=== PATIENT | male | born 1965 | race Caucasian/White ===

== ENCOUNTER 2020-01-19 21:54 | Emergency (ER) | payer OTHER, SELFPAY ==
--- NOTE | ~2020-01-19 | CT_ITS ---
EXAMINATION: CT brain wo con INDICATION: Headache COMPARISON: None TECHNIQUE: Standard unenhanced head CT. The dose-length product (DLP) was 605.33 mGy-cm. The mA was a djusted according to patient size. Iterative reconstruction technique was employed. FINDINGS: There is no intracranial hemorrhage, acute infarction, or abnormal mass lesion. The ventric les are normal. There is no abnormal mass effect or midline shift. The zepeda-white matter differentiat ion is normal. The basal cisterns are patent. The orbits are normal. There is mild mucosal thickening of the paranasal sinuses. IMPRESSION: 1. No acute intracranial abnormality. Reviewed, dictated and finalized at location A.
--- NOTE | ~2020-01-19 | XR_ITS ---
EXAMINATION: XR chest 1V portable INDICATION: Left chest pain TECHNIQUE: Portable AP chest at 2259 hours COMPARISON: 12/10/2012 FINDINGS: There are multiple acute left-sided rib fractures which are detailed on the CT of the thora cic spine. The known small left pneumothorax is not well demonstrated. There is mild atelectasis. The re is chronic deformity at the left acromioclavicular joint, consistent with prior injury. The cardio mediastinal silhouette is normal. IMPRESSION: 1. Multiple left-sided rib fractures which are detailed on CT of the thoracic spine. 2. Known left pneumothorax not well demonstrated. ER is aware. Reviewed, dictated and finalized at location A. IMPRESSION: 1. Multiple left-sided rib fractures which are detailed on CT of the thoracic s pine. 2. Known left pneumothorax not well demonstrated. ER is aware.
--- NOTE | ~2020-01-19 | CT_ITS ---
EXAMINATION: CT thoracic lumbar wo con DATE: 01/19/2020 22:33 INDICATION: Back pain TECHNIQUE: Computed tomography (CT) of the thoracic and lumbar spine was performed without intravenou s contrast. The dose-length product (DLP) was 1739.03 mGy-cm. Iterative reconstruction was used. COMPARISON: None FINDINGS: Thoracic spine: There are fractures of the left third through 11th ribs with segmental fractures of t he fourth through 11th ribs. There is a fracture of the left T9 transverse process. The vertebral bod y heights and alignment are maintained. There is mild loss of intervertebral disc space height in the midthoracic spine. A small anterior pneumothorax is seen inferiorly on the left. There are tiny foci of gas in the left chest wall adjacent to the rib fractures. There is diffuse wall thickening of the esophagus. Lumbar spine: There are bilateral L5 pars defects with grade 1 anterolisthesis of L5 on S1. The verte bral body heights are maintained. No lumbar spine fracture is identified. IMPRESSION: 1. Fractures of the left third through 11th ribs with segmental fractures of the fourth through 11th ribs. 2. Small left pneumothorax. 3. Left T9 transverse process fracture. 4. No acute osseous abnormality of the lumbar spine. These findings were discussed with KUMAR Roberson in the Emergency Department at 2322 hours on 01/19/2020. Reviewed, dictated and finalized at location A. IMPRESSION: 1. Fractures of the left third through 11th ribs with segmental fractures of th e fourth through 11th ribs. 2. Small left pneumothorax. 3. Left T9 transverse process fracture. 4. No acute osseous abnormality of the lumbar spine. These [facility].
--- NOTE | ~2020-01-19 | XR_ITS ---
EXAMINATION: XR pelvis 1-2V INDICATION: Pelvic pain TECHNIQUE: AP view of the pelvis is obtained. COMPARISON: None available FINDINGS: Bone alignment is normal. There is no fracture. No acute soft tissue abnormality is identif ied. Irregularity at the lateral aspect of the right iliac wing may reflect prior injury. IMPRESSION: 1. No acute osseous abnormality. Reviewed, dictated and finalized at location A.
--- NOTE | ~2020-01-19 | CT_ITS ---
EXAMINATION: CT cervical spine wo con DATE: 01/19/2020 22:30 INDICATION: Neck pain TECHNIQUE: Computed tomography (CT) of the cervical spine was performed without intravenous contrast. The dose-length product (DLP) was 592.21 mGy-cm. Automated exposure control and iterative reconstruc tion technique were employed. COMPARISON: None FINDINGS: There is no cervical spine fracture, dislocation, or subluxation. The vertebral body height s and alignment are normal. There is mild loss of intervertebral disc space height at C6-7 and C7-T1. The odontoid is intact. Small degenerative osteophytes project from the anterior endplates of multip le vertebral bodies. There is mild facet and uncovertebral joint osteoarthritis. There is a fracture in the medial aspect of the left third rib. Moderate emphysema is noted. IMPRESSION: 1. No cervical spine fracture. 2. Fracture in the medial aspect of the left third rib. Reviewed, dictated and finalized at location A.
[2020-01-19 21:53] VITALS: PULSE 84; RESP 18; TEMP 36.8; O2SAT 98
[2020-01-19 21:58] VITALS: PULSE 85
--- NOTE | 2020-01-19 22:04 | PC.NURSE ---
Patient refusing to wear C collar.
[2020-01-19] MEDS: SODIUM CHLORIDE 0.9% IV 1,000 ML 999 ML IV CONT (22:11)
[2020-01-19 22:18] LABS: Basophils Absolute Auto 0.1 K/mm3 (0.0-0.1); Basophils Percent Auto 0.7 % (0.2-1.2); Eosinophils Absolute Auto 0.2 K/mm3 (0-0.3); Eosinophils Percent Auto 1.4 % (0-4.4); Hematocrit 45.6 % (42.0-52.0); Hemoglobin 15.6 g/dL (14.0-18.0); Immature Granulocyte Absolute 0.33 K/mm3 (0.00-0.031); Immature Granulocyte Percent A 2.1 % (0-0.5); Lymphocytes Absolute Auto 2.76 K/mm3 (0.9-3.2); Lymphocytes Percent Auto 17.9 % (18.3-44.2); Mean Corpuscular HGB Conc 34.2 g/dl (32-36); Mean Corpuscular Hemoglobin 31.6 pg (26-34); Mean Corpuscular Volume 92.5 fl (80-100); Monocytes Absolute Auto 0.5 K/mm3 (0.1-0.6); Neutrophils Absolute Auto 11.5 K/mm3 (1.3-6.7); Neutrophils Percent Auto 74.9 % (45.5-73.1); Platelet Count Result 233 k/mm3 (150-375); Red Blood Count 4.93 M/mm3 (4.6-6.20); Red Cell Distribution Width 11.9 % (11.5-14.5); White Blood Count 15.4 K/mm3 (4.5-10.0)
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
[2020-01-19 22:23] LABS: Partial Thromboplastin Time 24.1 SECONDS (22.3-36.8); Prothrombin Time 13.3 Seconds (11.1-14.7)
[2020-01-19 22:26] LABS: Alanine Aminotransferase 26 U/L (4-50); Albumin Level 3.8 g/dL (3.5-5.1); Alkaline Phosphatase 92 U/L (38-126); Anion Gap 13 mmol/L (8-16); Aspartate Amino Transferase 31 U/L (17-59); Bilirubin,Total 0.2 mg/dL (0.2-1.3); Blood Urea Nitrogen 10 mg/dL (9-20); Calcium 8.3 mg/dL (8.4-10.2); Carbon Dioxide 21 mmol/L (22-30); Chloride 103 mmol/L (98-107); Estimated CRCL calculation 95 ml/min; Estimated Glomerular Filt Rate > 60; Glucose 136 mg/dL (75-110); Lipase 40 U/L (23-300); Sodium 137 mmol/L (137-145)
[2020-01-19 22:41] VITALS: TEMP 36.8
[2020-01-19 23:09] VITALS: BP 114/76; PULSE 75; RESP 17; O2SAT 96
--- NOTE | 2020-01-19 23:42 | PC.NURSE ---
Patient placed on 2L via NC.
[2020-01-20 00:03] VITALS: BP 135/67; PULSE 82; RESP 16; O2SAT 100
--- NOTE | 2020-01-20 01:00 | PC.NURSE ---
Per XI Crouch via verbal order read back, give patient 4mg Zofran IVP.
[2020-01-20] MEDS: ONDANSETRON INJ 4 MG/2 ML VIAL (01:10)
[2020-01-20 01:25] VITALS: BP 129/78; PULSE 80; RESP 17; TEMP 36.6; O2SAT 100
== END 2020-01-20 01:25 | disposition short-term general hospital (02) ==
PROVIDERS: Emergency Medicine Emergency Medical Services; Emergency Provider Emergency Medicine; PCP Emergency Medicine
DX: J93.9 Pneumothorax, unspecified (principal); S22.42XA Multiple fractures of ribs, left side, initial encounter for closed fracture; V28.4XXA Motorcycle driver injured in noncollision transport accident in traffic accident, initial encounter; F17.200 Nicotine dependence, unspecified, uncomplicated
CPT/HCPCS: 36415; 70450; 71045; 72125; 72128; 72131; 72170; 80053; 83690; 85025; 85610; 85730; 96361; 96374; 96375; 99284; J0131; J2405; J7030

== ENCOUNTER 2022-10-19 10:36 | Emergency (ER) | payer OTHER, SELFPAY ==
--- NOTE | ~2022-10-19 | CT_ITS ---
EXAMINATION: CT abdomen pelvis w con DATE: 10/19/2022 12:18 INDICATION: Left lower quadrant abdominal pain. Constipation. TECHNIQUE: Computed tomography (CT) of the abdomen and pelvis was performed with 100 mL Omnipaque 350 intravenous contrast. Automated exposure control and iterative reconstruction technique were employe d. The dose-length product was 304.32 mGy-cm. COMPARISON: None. FINDINGS: The visualized portions of lung bases demonstrate mild emphysema and mild atelectasis. No p leural effusion. The heart size is normal. No pericardial effusion. Calcifications in the liver and s pleen are consistent with old granulomatous disease. The gallbladder is normal. There is a 12 mm cyst in the tail of the pancreas. The adrenal glands and kidneys are normal. There is diffuse bladder wal l thickening. The prostate is moderately enlarged. There is a Bae catheter in expected position. Th ere are no dilated loops of bowel. The appendix is normal. There are no pathologically enlarged lymph nodes. There is no free intraperitoneal fluid. There is an old fracture deformity of right ilium. Th ere are chronic bilateral L5 pars defects. There is 4 mm anterolisthesis of L5 on S1. There is mild t horacolumbar spondylosis. IMPRESSION: 1. Diffuse bladder wall thickening which may be secondary to chronic outlet obstruction from the mode rately enlarged prostate. 2. 12 mm cystic lesion of the pancreas. The differential diagnosis includes pseudocyst, intraductal p apillary mucinous neoplasm (IPMN), mucinous cystic neoplasm (MCN), serous cystadenoma, and neuroendoc rine tumor. Abdomen MRI without and with contrast is recommended in one year. Reviewed, dictated and finalized at location A. IMPRESSION: 1. Diffuse bladder wall thickening which may be secondary to chronic outlet obs truction from the moderately enlarged prostate. 2. 12 mm cystic lesion of the pancreas. The differential diagnosis includes pse udocyst, intraductal papillary mucinous neoplasm (IPMN), mucinous cystic neopla sm (MCN), serous cystadenoma, and neuroendocrine tumor. Abdomen MRI without and with contrast is recommended in one year.
[2022-10-19 10:35] VITALS: BP 129/90; PULSE 76; RESP 16; TEMP 37; O2SAT 100
[2022-10-19 11:01] LABS: Basophils Absolute Auto 0.1 K/mm3 (0.0-0.1); Basophils Percent Auto 0.8 % (0.2-1.2); Eosinophils Absolute Auto 0.4 K/mm3 (0-0.3); Hematocrit 47.3 % (42.0-52.0); Hemoglobin 15.7 g/dL (14.0-18.0); Immature Granulocyte Absolute 0.02 K/mm3 (0.00-0.031); Immature Granulocyte Percent A 0.2 % (0-0.5); Lymphocytes Absolute Auto 1.97 K/mm3 (0.9-3.2); Lymphocytes Percent Auto 22.6 % (18.3-44.2); Mean Corpuscular HGB Conc 33.2 g/dl (32-36); Mean Corpuscular Hemoglobin 30.8 pg (26-34); Mean Corpuscular Volume 92.7 fl (80-100); Mean Platelet Volume 11.5 fl (7.4-10.4); Monocytes Absolute Auto 0.4 K/mm3 (0.1-0.6); Neutrophils Absolute Auto 5.9 K/mm3 (1.3-6.7); Neutrophils Percent Auto 67.4 % (45.5-73.1); Platelet Count Result 206 k/mm3 (150-375); Red Cell Distribution Width 12.5 % (11.5-14.5); White Blood Count 8.7 K/mm3 (4.5-10.0)
[2022-10-19 11:02] LABS: Appearance Urine Clear (Clear); Bilirubin Urine Negative (Negative); Blood Urine Negative (Negative); Color Urine Dark Yellow (Yellow); Glucose Urine UA Negative (Negative); Ketones Urine Negative (Negative); Leukocyte Esterase Ur Negative LEU/UL (Negative); Nitrate Urine Negative (Negative); Protein Urine Negative (Negative); Specific Grav Ur 1.015 (1.001-1.035); Urobilinogen Urine 0.2 mg/dL (<2.0); pH Urine 5.5 (5.0-9.0)
[2022-10-19 11:10] LABS: Add Urine Microscopic? NO
[2022-10-19 11:19] LABS: Alanine Aminotransferase 25 U/L (6-50); Albumin Level 4.1 g/dL (3.5-5.1); Alkaline Phosphatase 78 U/L (38-126); Anion Gap 6 mmol/L (8-16); Aspartate Amino Transferase 33 U/L (17-59); Bilirubin,Total 0.9 mg/dL (0.2-1.3); Blood Urea Nitrogen 12 mg/dL (9-20); Calcium 9.1 mg/dL (8.4-10.2); Carbon Dioxide 30 mmol/L (22-30); Chloride 98 mmol/L (98-107); Estimated CRCL calculation 89 ml/min; Estimated Glomerular Filt Rate > 60; Glucose 131 mg/dL (65-110); Lipase 34 U/L (23-300); Potassium 3.8 mmol/L (3.4-5.0); Sodium 134 mmol/L (137-145)
--- NOTE | 2022-10-19 11:48 | ED.MALEGU ---
HPI - Male Genitourinary General Chief complaint: Urogenital-Male Stated complaint: abd pain x 4 days Time Seen by Provider: 10/19/22 10:52 History of Present Illness HPI Narrative: Patient is a 56-year-old male with a history of COPD presenting with abdominal pain. Patient states that he has been unable to pee for the last several days. States that he has had worsening abdominal pain. States that he has also been unable to have a bowel movement which is abnormal for him. He denies fevers, headache, numbness or weakness, chest pain, shortness of breath, cough, vomiting, leg swelling. Related Data Home Medications Medication Instructions Recorded Confirmed No Home Medications 01/19/20 01/19/20 Allergies Allergy/AdvReac Type Severity Reaction Status Date / Time NKDA Allergy Unknown Unknown Uncoded 01/19/20 21:58 Review of Systems Review of Systems: All systems reviewed & are unremarkable except as noted in HPI and below PMFSH Social History Social History Smoking status: Current every day smoker Alcohol intake: current Gender identity (if verbalized by the patient): Male Exam Narrative: GENERAL: Well-appearing, well-nourished, and in no acute distress. HEAD: Normocephalic, atraumatic. EYES: PERRLA and EOMI. ENT: Nares clear, no rhinorrhea or epistaxis. Mucous membranes moist. NECK: Supple. CHEST: Clear to auscultation. No respiratory distress. HEART: Regular rate and rhythm ABDOMEN: Soft, + left lower quadrant tenderness, no guarding or rebound; Bae catheter in place with greater than 1400 cc in urinary bag EXTREMITIES: Normal range of motion. No edema. SKIN: Warm, dry, no rash. NEURO: No focal deficits. Alert and oriented x3. PSYCH: Normal mood and affect. Course Vital Signs Vital signs: Vital Signs Temperature 98.6 F 10/19/22 10:35 Pulse Rate 76 10/19/22 10:35 Respiratory Rate 16 10/19/22 10:35 Blood Pressure 129/90 10/19/22 10:35 Pulse Oximetry 100 10/19/22 10:35 Oxygen Delivery Room Air 10/19/22 10:35 Temperature 98.6 F 10/19/22 10:35 Pulse Rate 64 10/19/22 14:47 Respiratory Rate 16 10/19/22 14:47 Blood Pressure 117/61 10/19/22 14:47 Pulse Oximetry 98 10/19/22 14:47 Oxygen Delivery Room Air 10/19/22 10:35 MDM - Male Genitourinary MDM Narrative Medical decision making narrative: Patient is a 56-year-old male presenting with inability to urinate or defecate for several days. Vitals within normal limits. Bae catheter was placed with subsequent drainage of approximately 1.5 L of urine. Patient does report improvement in his pain though he remains tender in his left lower quadrant. We will start some fluids, check CT scan. Blood work is unremarkable. Normal renal function. No leukocytosis. UA is unremarkable. CT abdomen pelvis shows prostate enlargement with diffuse bladder thickening concerning for chronic outlet obstruction which is consistent with the patient's presentation. There are no other acute abnormalities. On reevaluation, the patient is sleeping comfortably. States that he feels back to normal now that his urine is drained. Discussed the findings with the patient. We will leave the Bae in for now and advised to follow-up closely with urology as well as his PCP. Discussed the incidental finding of the pancreatic cyst seen on CT. Discussed that he will likely require outpatient imaging for this. Appropriate return precautions were given. Patient voiced understanding and is agreeable with plan. Discharged in stable condition. Differential Diagnosis Differential diagnosis: Likely urinary tract infection, urethritis and acute retention of urine Medical Records Attestation: I reviewed the patient's medical records. Lab Data Attestation: I reviewed the patient's lab results. 10/19/22 10:45 10/19/22 10:45 Labs: Lab Results 10/19/22
[2022-10-19] MEDS: SODIUM CHLORIDE 0.9% IV 1,000 ML 999 ML IV CONT (12:28)
[2022-10-19 12:30] VITALS: BP 122/59; PULSE 62; RESP 14; O2SAT 100
[2022-10-19 14:47] VITALS: BP 117/61; PULSE 64; RESP 16; O2SAT 98
== END 2022-10-19 14:49 | disposition home or self-care (01) ==
PROVIDERS: Emergency Provider Emergency Medicine; PCP Internal Medicine Infectious Disease
DX: R33.9 Retention of urine, unspecified (principal); J44.9 Chronic obstructive pulmonary disease, unspecified; F17.200 Nicotine dependence, unspecified, uncomplicated
CPT/HCPCS: 36415; 51702; 74177; 80053; 81003; 83690; 85025; 96360; 96361; 99284; J7030; Q9967

== ENCOUNTER 2023-01-02 10:32 | Outpatient (CLI) | payer OTHER, SELFPAY ==
--- NOTE | ~2023-01-02 | MR_ITS ---
MRI of the abdomen: Clinical indication: Abdominal pain. Technique: Coronal SSFSE ARC, WATER:coronal LAVA-FLEX, Coronal 2D FIESTA FatSat, Axial SSFSE BH ARC, Axial 3D DualEcho BH, Axial SSFSE-IR, Axial DWI b=500, Axial 2D FIESTA FatSat, pre and dynamic postco ntrast Axial LAVA ARC, postcontrast Coronal In and Opposed phase LAVA FLEX. Following intravenous adm inistration of 14 cc MultiHance gadolinium, T1-weighted fat-sat imaging was performed in the axial an d coronal planes. COMPARISON: CT scan dated 10/19/2022 Findings: Gallbladder is unremarkable. The common bile duct is common bile duct is normal in course a nd caliber. No filling defects are seen within the CBD. No evidence of intrahepatic biliary ductal di latation. The pancreatic duct is normal in size. There is a 12 mm simple cyst at the pancreatic tail, T2 hyperintense, T1 hypointense, without postcon trast enhancement. Liver, spleen, adrenals, kidneys appear normal. The aorta and the paraaortic regions appear normal. Impression: 12 mm simple cyst of the pancreatic tail. Reviewed, dictated and finalized at location M. Impression: 12 mm simple cyst of the pancreatic tail.
== END 2023-01-02 10:33 | disposition home or self-care (01) ==
PROVIDERS: PCP Internal Medicine Infectious Disease
DX: K86.2 Cyst of pancreas (principal)
CPT/HCPCS: 74183; A9577